=== PATIENT | female | born 1980 | race African-American/Black ===

== ENCOUNTER 2020-10-24 16:05 | Emergency (ER) | payer BC ==
[~2020-10-24] VITALS: Ht 154.9 cm; Wt 59.0 kg
[2020-10-24] MEDS ORDERED: AMOXICILLIN500 MG PO (16:26)
== END 2020-10-24 16:36 | disposition home or self-care (01) ==
LOC: ER 16:31
DX: K08.89 Other specified disorders of teeth and supporting structures (principal); K02.9 Dental caries, unspecified
CPT/HCPCS: 99283

== ENCOUNTER 2020-11-13 21:30 | Emergency (ER) | payer SELFPAY ==
[~2020-11-13] VITALS: Ht 154.9 cm; Wt 59.0 kg
[~2020-11-13 21:30] MED LIST: AMOXICILLIN500 MG PO
[2020-11-14] MEDS ORDERED: KETOROLAC TROMETHAMINE 30 MG/ML VIAL IV STA (00:30)
[2020-11-14 00:38] LABS: BASOPHILS % 0.2 % (0.0-1.0); CLARITY,URINE CLOUDY (CLEAR); COLOR,URINE YELLOW (YELLOW); EOSINOPHILS # (AUTO) 0.1 (0.0-0.4); EOSINOPHILS % 0.7 % (0.0-6.0); HEMATOCRIT 24.1 % (34.2-44.1); HEMOGLOBIN 7.1 g/dL (12.0-16.0); KETONES,URINE NEGATIVE (NEGATIVE); LEUKOCYTE ESTERASE ,URINE NEGATIVE (NEGATIVE); LYMPHOCYTES # (AUTO) 1.5 (1.0-3.2); LYMPHOCYTES % 12.7 % (18.0-39.1); MEAN CORPUSCULAR HEMOGLOBIN 21.8 pg (28-32); MEAN CORPUSCULAR HGB CONC 29.5 g/dL (31-35); MEAN CORPUSCULAR VOLUME 74.2 fL (81-99); MONOCYTES # (AUTO) 0.9 (0.2-0.8); NEUTROPHILS # (AUTO) 9.6 (2.1-6.9); NITRITE,URINE NEGATIVE (NEGATIVE); PLATELET COUNT 450 x10e3/uL (140-360); PREGNANCY TEST, URINE NEGATIVE (NEGATIVE); PROTEIN,URINE DIPSTICK NEGATIVE (NEGATIVE); RED BLOOD COUNT 3.25 x10e6/uL (3.6-5.1); RED CELL DISTRIBUTION WIDTH 23.6 % (11.7-14.4); URINE UROBILINOGEN 0.2 mg/dL (0.2 - 1)
[2020-11-14 00:45] LABS: AMORPHOUS SEDIMENT,URINE MANY (FEW); BACTERIA,URINE FEW /HPF; EPITHELIAL CELLS,URINE FEW /LPF; RBC,URINE 0-5 /HPF (0-5); WBC,URINE (MAN) 0-5 /HPF (0-5)
[2020-11-14 00:55] LABS: ALANINE AMINOTRANSFERASE 11 IU/L (0-55); ALBUMIN 3.7 g/dL (3.5-5.0); ALBUMIN/GLOBULIN RATIO 1.2 (0.8-2.0); ALKALINE PHOSPHATASE 151 IU/L (40-150); ANION GAP 10.5 mmol/L (8-16); BLOOD UREA NITROGEN 16 mg/dL (7-26); BUN/CREATININE RATIO 20 (6-25); CALCIUM 11.4 mg/dL (8.4-10.2); CARBON DIOXIDE 28 mmol/L (22-29); CHLORIDE 105 mmol/L (98-107); CREATININE, SERUM 0.82 mg/dL (0.57-1.11); EST GLOMERULAR FILTRATION RATE > 60 ML/MIN (60-); GLUCOSE 101 mg/dL (74-118); POTASSIUM 3.5 mmol/L (3.5-5.1); SODIUM 140 mmol/L (136-145)
== END 2020-11-14 05:40 | disposition other institution (70) ==
LOC: ER 23:28
DX: R10.32 Left lower quadrant pain (principal); N83.512 Torsion of left ovary and ovarian pedicle
CPT/HCPCS: 36415; 76830; 76856; 80053; 81001; 81025; 85025; 93976; 99284; J1885; U0002

== ENCOUNTER 2020-11-26 02:47 | Emergency (ER) | payer SELFPAY ==
[~2020-11-26] VITALS: Ht 154.9 cm; Wt 59.0 kg
[2020-11-26] MEDS: KETOROLAC TROMETHAMINE 30 MG/ML VIAL IV STA (02:58)
[2020-11-26 03:06] LABS: BASOPHILS # (AUTO) 0.1 (0.0-0.1); BASOPHILS % 0.6 % (0.0-1.0); EOSINOPHILS # (AUTO) 0.2 (0.0-0.4); EOSINOPHILS % 1.9 % (0.0-6.0); HEMATOCRIT 26.1 % (34.2-44.1); HEMOGLOBIN 7.3 g/dL (12.0-16.0); LYMPHOCYTES # (AUTO) 2.8 (1.0-3.2); LYMPHOCYTES % 36.3 % (18.0-39.1); MEAN CORPUSCULAR HEMOGLOBIN 21.5 pg (28-32); MEAN CORPUSCULAR VOLUME 76.8 fL (81-99); MONOCYTES # (AUTO) 0.8 (0.2-0.8); MONOCYTES % 10.2 % (4.4-11.3); NEUTROPHILS # (AUTO) 3.9 (2.1-6.9); NEUTROPHILS % 50.7 % (38.7-80.0); PLATELET COUNT 468 x10e3/uL (140-360); RED CELL DISTRIBUTION WIDTH 23.5 % (11.7-14.4)
[2020-11-26 03:14] LABS: COLOR,URINE YELLOW (YELLOW)
[2020-11-26 03:15] LABS: CLARITY,URINE CLOUDY (CLEAR); KETONES,URINE NEGATIVE (NEGATIVE); LEUKOCYTE ESTERASE ,URINE NEGATIVE (NEGATIVE); NITRITE,URINE NEGATIVE (NEGATIVE); PROTEIN,URINE DIPSTICK 2+ (NEGATIVE); URINE UROBILINOGEN 0.2 mg/dL (0.2 - 1)
[2020-11-26 03:20] LABS: PREGNANCY TEST, URINE NEGATIVE (NEGATIVE)
[2020-11-26 03:21] LABS: AMYLASE 79 U/L (25-125); LIPASE 30 U/L (8-78)
[2020-11-26 03:22] LABS: BACTERIA,URINE FEW /HPF; EPITHELIAL CELLS,URINE FEW /LPF; RBC,URINE >50 /HPF (0-5)
[2020-11-26 03:23] LABS: ALANINE AMINOTRANSFERASE 43 IU/L (0-55); ALBUMIN 3.7 g/dL (3.5-5.0); ALKALINE PHOSPHATASE 134 IU/L (40-150); ANION GAP 13.5 mmol/L (8-16); BLOOD UREA NITROGEN 16 mg/dL (7-26); BUN/CREATININE RATIO 19 (6-25); CALCIUM 11.6 mg/dL (8.4-10.2); CARBON DIOXIDE 23 mmol/L (22-29); CHLORIDE 109 mmol/L (98-107); CREATININE, SERUM 0.86 mg/dL (0.57-1.11); EST GLOMERULAR FILTRATION RATE > 60 ML/MIN (60-); GLUCOSE 96 mg/dL (74-118); POTASSIUM 4.5 mmol/L (3.5-5.1); SODIUM 141 mmol/L (136-145)
[2020-11-26] MEDS ORDERED: SODIUM CHLORIDE 0.9% 50ML 50 ML ONE (03:40)
[2020-11-26] MEDS ORDERED: IOPAMIDOL 370 MG/ML 200 ML INFUS..BTL INJ ONE (03:41)
== END 2020-11-26 06:36 | disposition home or self-care (01) ==
LOC: ER 04:12
DX: R10.32 Left lower quadrant pain (principal); D25.9 Leiomyoma of uterus, unspecified
CPT/HCPCS: 36415; 74177; 76830; 76856; 80053; 81001; 81025; 82150; 83690; 85025; 99284; J1885; Q9967

== ENCOUNTER 2021-01-13 15:24 | Emergency (ER) | payer BC, MEDICARE ==
[~2021-01-13] VITALS: Ht 154.9 cm; Wt 59.0 kg
[2021-01-13] MEDS ORDERED: KETOROLAC TROMETHAMINE 30 MG/ML VIAL IV STA (15:46)
[2021-01-13] MEDS ORDERED: ACETAMINOPHEN 325 MG TAB PO ONE (16:00)
[2021-01-13] MEDS ORDERED: KETOROLAC TROMETHAMINE 30 MG/ML VIAL IM STA (16:08)
[2021-01-13] MEDS ORDERED: ONDANSETRON ODT4 MG PO (16:33)
== END 2021-01-13 17:01 | disposition home or self-care (01) ==
LOC: ER 16:02
DX: R05 Cough (principal); R07.89 Other chest pain; R50.9 Fever, unspecified; R53.81 Other malaise
CPT/HCPCS: 71045; 93005; 99283; J1885

== ENCOUNTER 2021-08-08 03:26 | Emergency (ER) | payer BC, OTHER ==
[~2021-08-08] VITALS: Ht 154.9 cm; Wt 59.0 kg
[~2021-08-08 03:26] MED LIST changes: +ONDANSETRON ODT4 MG PO
[2021-08-08 04:50] LABS: CLARITY,URINE CLEAR (CLEAR); COLOR,URINE YELLOW (YELLOW); LEUKOCYTE ESTERASE ,URINE NEGATIVE (NEGATIVE)
[2021-08-08 04:51] LABS: BACTERIA,URINE FEW /HPF; EPITHELIAL CELLS,URINE FEW /LPF; KETONES,URINE NEGATIVE (NEGATIVE); NITRITE,URINE NEGATIVE (NEGATIVE); PROTEIN,URINE DIPSTICK NEGATIVE (NEGATIVE); URINE UROBILINOGEN 0.2 mg/dL (0.2 - 1); WBC,URINE (MAN) 0-5 /HPF (0-5)
[2021-08-08] MEDS ORDERED: KETOROLAC TROMETHAMINE 60 MG/2 ML VIAL IM ONE (07:00)
[2021-08-08 07:37] VITALS: BP 124/57
== END 2021-08-08 07:41 | disposition home or self-care (01) ==
LOC: ER 03:35
DX: S01.81XA Laceration without foreign body of other part of head, initial encounter (principal); S10.83XA Contusion of other specified part of neck, initial encounter; S50.11XA Contusion of right forearm, initial encounter; S80.02XA Contusion of left knee, initial encounter; Y04.0XXA Assault by unarmed brawl or fight, initial encounter; Y92.488 Other paved roadways as the place of occurrence of the external cause
CPT/HCPCS: 12013; 70450; 72110; 72125; 73080; 73090; 73562; 73590; 81001; 81025; 99283; J1885

== ENCOUNTER 2021-10-29 09:06 | Emergency (ER) | payer SELFPAY ==
[~2021-10-29] VITALS: Ht 154.9 cm; Wt 81.6 kg
[2021-10-29] MEDS ORDERED: GUAIFENESIN-DM 15 ML PO (09:17)
== END 2021-10-29 10:49 | disposition home or self-care (01) ==
LOC: ER 09:13
DX: J06.9 Acute upper respiratory infection, unspecified (principal); R05.9 Cough, unspecified; R53.83 Other fatigue; Z20.822 Contact with and (suspected) exposure to COVID-19
CPT/HCPCS: 99283; U0002

== ENCOUNTER 2021-12-13 22:41 | Emergency (ER) | payer SELFPAY ==
[~2021-12-13] VITALS: Ht 154.9 cm; Wt 81.6 kg
[~2021-12-13 22:41] MED LIST changes: +GUAIFENESIN-DM 15 ML PO
== END 2021-12-13 23:05 | disposition home or self-care (01) ==
LOC: ER 22:56
DX: M79.651 Pain in right thigh (principal); S76.811A Strain of other specified muscles, fascia and tendons at thigh level, right thigh, initial encounter; Y92.008 Other place in unspecified non-institutional (private) residence as the place of occurrence of the external cause; X50.0XXA Overexertion from strenuous movement or load, initial encounter
CPT/HCPCS: 99282

== ENCOUNTER 2022-04-07 08:56 | Emergency (ER) | payer BC, OTHER ==
[~2022-04-07] VITALS: Ht 175.3 cm; Wt 99.8 kg
[2022-04-07] MEDS ORDERED: NAPROXEN 250 MG TAB PO SCH (09:15)
[2022-04-07] MEDS ORDERED: TETANUS/DIPHTHERIA TOX ADULT 0.5 ML SYR IM ONE (09:15)
[2022-04-07] MEDS ORDERED: NAPROSYN500 MG PO (10:51)
[2022-04-07] MEDS ORDERED: CLINDAMYCIN HC150 MG PO (10:51)
== END 2022-04-07 10:59 | disposition home or self-care (01) ==
LOC: ER 09:03
DX: S91.211A Laceration without foreign body of right great toe with damage to nail, initial encounter (principal); W20.8XXA Other cause of strike by thrown, projected or falling object, initial encounter; Y92.89 Other specified places as the place of occurrence of the external cause
CPT/HCPCS: 90714; 99283